=== PATIENT | female | born 2000 | race Caucasian/White ===

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

== ENCOUNTER → 2019-10-19 | Outpatient (CLI) | payer MEDICAID ==
[~2019-10-19] MED LIST changes: +HYDR-4226 PO; -HYDR-757 PO; +SULF1TAB35 PO; +VIGAMOX OP
--- NOTE | 2019-10-19 14:58 | Diagnostic Imaging Report ---
INDICATION: Size and dates. TECHNIQUE: OB sonography was performed in the routine fashion with transabdominal views. FINDINGS: The uterus measures 9.6 x 6.7 x 7.6 cm. There is no uterine mass. A single live intrauterine gestation is seen with a heart rate of 165 BPM. A normal appearing yolk sac is visualized. The fetus measures 8 weeks 2 days by crown-rump length. There is no evidence of subchorionic bleed. The right ovary measures 4.0 x 3.2 x 3.0 cm and contains a simple cyst measuring 2.7 x 2.8 cm. There is a normal appearance of the left ovary measuring 4.2 x 3.1 x 2.3 cm. There is no free fluid. There is color flow to both ovaries. IMPRESSION: Single live intrauterine fetus measuring 8 weeks 2 days by crown-rump length. There is no detectable abnormality at this time. Recommend followup later in for anatomical survey. There is a corpus luteal cyst of the right ovary. There is no free fluid. Dictated by: Dictated on workstation # [id number]
== END ==
LOC: RAD 12:42
PROVIDERS: ATTEND Family Medicine
DX: Z36.9 Encounter for antenatal screening, unspecified (principal); Z3A.08 8 weeks gestation of pregnancy; N83.11 Corpus luteum cyst of right ovary
CPT/HCPCS: 76801

== ENCOUNTER → 2020-01-06 | Outpatient (CLI) | payer MEDICAID ==
--- NOTE | 2020-01-06 16:00 | Diagnostic Imaging Report ---
INDICATION: survey. TECHNIQUE: Multiple real-time grayscale images were obtained over the gravid uterus. COMPARISON: 10/19/2019. FINDINGS: The previous OB ultrasound exam performed on 10/19/2019 noted a single live intrauterine fetus of approximately 8 weeks 2 days gestation. On this exam, the fetus is again visualized. heart motion was noted and a rate of 147 BPM was recorded. The fetus is in breech presentation. There were no abnormalities identified. The placenta is anterior and there is no previa. The amniotic fluid volume is within normal limits. The growth parameters are fairly uniform and have progressed as expected since the prior study. The cervix was identified and measures 4 cm in length. Biometrical measurements are as follows: Biparietal 4.65 cm, age 20 weeks 1 days. Head circumference 17.74 cm, age 20 weeks 2 days. Abdominal circumference 14.45 cm, age 19 weeks 6 days. Femur length 3.25 cm, age 20 weeks 1 days. Sonographic estimate age: 20 weeks 1 days. Sonographic estimated date of delivery: 05/24/20. Estimated Weight: 324 gm (+/- 47 gm). LMP percentile: 77%. heart rate: 147 beats per minute. number: 1 of 1. IMPRESSION: 1. There is a single live fetus of approximately 20 weeks 1 day gestation +/-1 week. The EDC remains May 24, 2020. 2. There were no abnormalities identified. 3. The growth parameters have progressed as expected since the prior study. Dictated by: Dictated on workstation # [id number]
== END ==
LOC: RAD 13:34
PROVIDERS: ATTEND Family Medicine
DX: Z34.92 Encounter for supervision of normal pregnancy, unspecified, second trimester (principal); Z3A.20 20 weeks gestation of pregnancy
CPT/HCPCS: 76805

== ENCOUNTER → 2020-02-28 | Outpatient (CLI) | payer MEDICAID ==
--- NOTE | 2020-02-28 11:50 | NUR ---
OLIVIA ANDRADE presented to unit via ambulation from registration with c/o RHOGAM INJECTION. Rhogam given, see intervention. Pt tolerates well. Pt ambulates off unit to prive vehicle. No s/s of distress.
== END ==
LOC: WSo 10:48
PROVIDERS: ATTEND Family Medicine
DX: Z29.13 Encounter for prophylactic Rho(D) immune globulin (principal)
CPT/HCPCS: 96372

== ENCOUNTER 2020-05-01 14:09 | Outpatient (RCR) | payer MEDICAID ==
[~2020-05-01] VITALS: Ht 152.5 cm; Wt 76.7 kg
--- NOTE | 2020-05-01 14:20 | NUR ---
OLIVIA ANDRADE presented to unit via AMBULATION from ED, , with c/o NST. OLIVIA ANDRADE weighed, gowned, voided, and to bed. EFHM and TOCO applied, VS taken. OLIVIA ANDRADE oriented to bed controls, call light, TV, heat, and A/C controls.
[2020-05-01 14:22] VITALS: BP_SYST 133; BP_SYST 151; BP_DIAS 66; BP_DIAS 83
[2020-05-01 14:40] VITALS: BP 124/61
[2020-05-01 14:50] VITALS: BP 121/58
--- NOTE | 2020-05-01 15:18 | NUR ---
DR ROBERTO CALLED, NEW ORDERS TO D/C PT HOME.
--- NOTE | 2020-05-01 15:19 | NUR ---
PT DISCHARGED TO HOME, LABOR PRECAUTIONS EXPLAINED, PT VERBALIZES UNDERSTANDING, WILL FOLLOW UP WITH DR IN CLINIC SCHEDULED.
[2020-05-01 15:20] VITALS: BP 121/58
[2020-05-19] MEDS ORDERED: PREN1TAB79 PO (18:53)
[2020-05-24] MEDS ORDERED: FERR-84 PO (09:29)
[2020-05-24] MEDS ORDERED: IBUP-844 PO (09:29)
[2020-05-24] MEDS ORDERED: OXC5T PO (09:29)
[2020-05-24] MEDS ORDERED: DCS100C PO (09:29)
[2020-05-24] MEDS ORDERED: ACET-93 PO (09:29)
== END 2020-07-30 | disposition home or self-care (01) ==
LOC: WSo 14:09 → LDRP 14:10
PROVIDERS: ATTEND Family Medicine
DX: O24.419 Gestational diabetes mellitus in pregnancy, unspecified control (principal)
CPT/HCPCS: 59025

== ENCOUNTER 2020-05-08 14:51 | Outpatient (RCR) | payer MEDICAID ==
[~2020-05-08] VITALS: Ht 152.4 cm; Wt 78.7 kg
--- NOTE | 2020-05-08 14:58 | NUR ---
OLIVIA ANDRADE presented to unit from Home, with c/o NST/GESTATIONAL DIABETES. OLIVIA ANDRADE weighed. EFHM and TOCO applied, VS taken. OLIVIA ANDRADE oriented to bed controls, call light, TV, heat, and A/C controls.
[2020-05-08 15:27] VITALS: BP 148/87
[2020-05-08 15:37] VITALS: BP 148/89
[2020-05-08 15:40] VITALS: BP 140/89
--- NOTE | 2020-05-08 15:43 | NUR ---
Dr. Beatty notified of reactive NST.
--- NOTE | 2020-05-08 15:45 | NUR ---
Patient ambulated from the unit at this time. No signs or symptoms of distress noted.
--- NOTE | 2020-05-15 14:34 | NUR ---
OLIVIA ANDRADE presented to unit via from home, with c/o GESTATIONAL DIABETES/NST. OLIVIA ANDRADE weighed, gowned, voided, and to bed. EFHM and TOCO applied, VS taken. OLIVIA ANDRADE oriented to bed controls, call light, TV, heat, and A/C controls.
[2020-05-15 14:35] VITALS: BP 149/90
[2020-05-15 14:55] VITALS: BP 139/70
[2020-05-15 15:08] VITALS: BP 139/70
--- NOTE | 2020-05-15 15:09 | NUR ---
Dr. Beatty notified of reactive NST, orders rec'd to discharge home. Monitors removed, pt ambulates off unit with no s/s distress.
[2020-05-19] MEDS ORDERED: PREN1TAB79 PO (18:53)
[2020-05-24] MEDS ORDERED: OXC5T PO (09:29)
[2020-05-24] MEDS ORDERED: DCS100C PO (09:29)
[2020-05-24] MEDS ORDERED: IBUP-844 PO (09:29)
[2020-05-24] MEDS ORDERED: ACET-93 PO (09:29)
[2020-05-24] MEDS ORDERED: FERR-84 PO (09:29)
== END 2020-08-06 | disposition home or self-care (01) ==
LOC: LAB 14:51
PROVIDERS: ATTEND Family Medicine
DX: O24.410 Gestational diabetes mellitus in pregnancy, diet controlled (principal)

== ENCOUNTER 2020-05-19 18:15 | Outpatient (CLI) | payer MEDICAID ==
[~2020-05-19] VITALS: Ht 152.4 cm; Wt 80.7 kg
--- NOTE | 2020-05-19 18:20 | NUR ---
OLIVIA ANDRADE presented to unit from ED, with c/o LEAKING FLUID. OLIVIA ANDRADE weighed, gowned, voided, and to bed. EFHM and TOCO applied, VS taken. OLIVIA ANDRADE oriented to bed controls, call light, TV, heat, and A/C controls.
[2020-05-19 18:51] LABS: BILIRUBIN,URINE NEGATIVE (NEGATIVE); CLARITY,URINE CLEAR; COLOR,URINE YELLOW; GLUCOSE, URINE (UA) NEGATIVE (NEGATIVE); KETONES,URINE NEGATIVE (NEGATIVE); LEUKOCYTE ESTERASE ,URINE NEGATIVE (NEGATIVE); NITRITE,URINE NEGATIVE (NEGATIVE); PH,URINE 6.5 (5-9); PROTEIN,URINE NEGATIVE (NEGATIVE)
[2020-05-19] MEDS ORDERED: PREN1TAB79 PO (18:53)
[2020-05-19 18:57] LABS: BACTERIA,URINE LARGE /HPF
[2020-05-19 19:00] VITALS: BP 159/103
--- NOTE | 2020-05-19 19:19 | NUR ---
Discharge instructions discussed with patient. Pt denies any concerns. Signature sheet signed, placed on chart. Offered wheelchair, denied per pt. Pt ambulating off unit at time to private vehicle. No signs of distress noted.
--- NOTE | 2020-05-21 08:25 | Physician Query-Final Dx ---
Clinic Account Progress/Dx Physician Query: Please give diagnosis Please include # weeks gestation Date of Service May 19, 2020 at 18:15 MATTHEW KUNZ May 21, 2020 08:25
== END 2020-05-19 19:19 | disposition home or self-care (01) ==
LOC: LDRP 18:15 → WSo 18:15
PROVIDERS: ATTEND Family Medicine
DX: O41.93X0 Disorder of amniotic fluid and membranes, unspecified, third trimester, not applicable or unspecified (principal); Z3A.38 38 weeks gestation of pregnancy
CPT/HCPCS: 81000; 87088; G0463; 99213

== ENCOUNTER 2020-05-21 23:25 | Outpatient (CLI) | payer MEDICAID ==
[~2020-05-21] VITALS: Ht 152.4 cm; Wt 81.4 kg
[~2020-05-21 23:25] MED LIST changes: +PREN1TAB79 PO
--- NOTE | 2020-05-21 23:30 | NUR ---
OLIVIA ANDRADE presented to unit via ambulatory from ED, accompanied by self, with c/o BROWN DISCHARGE, CRAMPING. OLIVIA ANDRADE weighed, gowned, voided, and to bed. EFHM and TOCO applied, VS taken. OLIVIA ANDRADE oriented to bed controls, call light, TV, heat, and A/C controls.
[2020-05-21 23:48] LABS: BILIRUBIN,URINE NEGATIVE (NEGATIVE); CLARITY,URINE CLOUDY; COLOR,URINE YELLOW; GLUCOSE, URINE (UA) NEGATIVE (NEGATIVE); KETONES,URINE NEGATIVE (NEGATIVE); LEUKOCYTE ESTERASE ,URINE NEGATIVE (NEGATIVE); NITRITE,URINE NEGATIVE (NEGATIVE); PROTEIN,URINE 1+ (NEGATIVE)
[2020-05-22] VITALS: BP 144/92
[2020-05-22 00:02] LABS: BACTERIA,URINE TRACE /HPF; RBC,URINE 0-2 /HPF; WBC,URINE 0-2 /HPF
[2020-05-22 01:01] VITALS: BP 159/85
--- NOTE | 2020-05-22 01:10 | NUR ---
DISCHARGE PACKET GIVEN AND EXPLAINED, UNDERSTANDING VOICED. PT AWARE HER PREVIOUSLY SCHEDULED APPOINTMENT IS TOMORROW. NO SS DISTRESS NOTED, PT AMBULATORY OFF UNIT AT THIS TIME.
[2020-05-22 01:15] VITALS: BP 144/92
--- NOTE | 2020-05-22 09:33 | Physician Query-Final Dx ---
MATTHEW KUNZ 05/22/20 0933: Clinic Account Progress/Dx Physician Query: Please give diagnosis Please include # weeks gestation Date of Service May 21, 2020 at 23:25 KATYA ROBERTO MD 05/22/20 1753: Clinic Account Progress/Dx DIAGNOSIS: Diagnosis 1. IUP at 39 weeks, non-labor 2. Uterine irritability MATTHEW KUNZ May 22, 2020 09:33 KATYA ROBERTO MD May 22, 2020 17:53
== END 2020-05-22 01:10 | disposition home or self-care (01) ==
LOC: WSo 23:25 → LDRP 23:26 → WSo 05-22 01:10
PROVIDERS: ATTEND Family Medicine
DX: N89.8 Other specified noninflammatory disorders of vagina (principal)
CPT/HCPCS: 81000

== ENCOUNTER 2020-05-22 06:06 | Inpatient (IN) | payer MEDICAID ==
[~2020-05-22] VITALS: Ht 152 cm; Wt 80.9 kg
[2020-05-22] VITALS (63 sets, daily range): BP systolic 0–163; BP diastolic 0–99
--- NOTE | 2020-05-22 06:10 | NUR ---
OLIVIA ANDRADE presented to unit via AMBULATORY from ED, accompanied by SELF, with c/o CONTRACTIONS. OLIVIA ANDRADE weighed, gowned, voided, and to bed. EFHM and TOCO applied, VS taken. OLIVIA ANDRADE oriented to bed controls, call light, TV, heat, and A/C controls. Above and further assessments carried out per this rn.
--- NOTE | 2020-05-22 06:35 | NUR ---
ht wt not obtained as pt was last seen 05/21/20 at 2330 and discharged from clinic evaluation on 05/22/20 0110.
--- NOTE | 2020-05-22 06:50 | NUR ---
present on unit, notified of pt arrival, current sve, reports evaluating pt after another case is completed as he remains on unit.
--- NOTE | 2020-05-22 07:05 | NUR ---
at bedside, poc reviewed, understanding voiced by pt.
[2020-05-22] MEDS ORDERED: D5 LR IV SOLUTION 1,000 ML IV ONE (07:20)
--- NOTE | 2020-05-22 07:22 | History & Physical-OB ---
OB - Chief Complaint & HPI Date/Time Date of Admission: Date of Admission: Date seen by a Provider: May 22, 2020 Time Seen by a Provider: 07:10 Chief Complaint/History OB-Reason for Admission/Chief: Onset of Labor Hx : 1 Hx Para: 0 Expected Date of Delivery: May 29, 2020 Gestational Age in Weeks: 39 Gestational Age in Days: 0 Admission Nurse Assessment Rev: Yes History of Labs GBS negative Allergies and Home Medications Allergies Coded Allergies: No Known Drug Allergies (Unverified , 05/21/20) Home Medications Vit W-Ca,Fe,FA(<1 mg) 1 Each Tablet, 1 EACH PO DAILY, (Reported) Patient Home Medication List Home Medication List Reviewed: Yes OB - History Hx of Present Care: Yes Ultrasounds: Normal mid trimester US Obstetrical Complications: Gestational Diabetes Medical Complications: None Obstetrical History Hx : 1 Hx Para: 0 Delivery History Hx Blood Disorders: No Patient Past Medical History no chronic medical problems Social History/Family History Alcohol Use: Denies Use Recreational Drug Use: No 2nd Hand Smoke Exposure: No Immunizations Tetanus Booster (TDap): Less than 5yrs Date of Influenza Vaccine: Aug 27, 2014 OB - Admission Exam Physical Exam Vitals: Vital Signs 05/22/20 06:30 Temp 37.0 Pulse 99 Resp 18 Pulse Ox 98 O2 Delivery Room Air HEENT: Moist Membranes Heart: Rhythm Normal Lungs: Clear Abdomen: Gravid Extremities: Normal Cervical Dilatation: 1cm Effacement: Other (90%) Station: Ballotable Membranes: Intact Heart Rate: 140's Accelerations: Accelerations Present Decelerations: No Decelerations Short Term Variability: Present Intensity: Moderate Cardona Scoring Tool (Modified) Dilation (cm): 1-2cm (1) Effacement (%): 80-100% (3) Descent/Station: -3 (0) Cervix Consistency: Soft (2) Cervix Position: Anterior (2) Subtract 1 point for: Nulliparity (-1) Cardona Score: 7 OB - Assessment/Plan/Diagnosis Assessment Assessment: active labor Admission Dx 1. IUP at term 39 weeks in labor 2. Gestational diabetes-- well controlled Admission Status: Inpatient Order (span 2 midnights) Reason for Inpatient Admission: L&D Plan Other Plan -pitocin if needed -desires epidural KATYA ROBERTO MD May 22, 2020 07:22
[2020-05-22] MEDS ORDERED: OXYTOCIN PRE-MIX DRIP 500 ML IV SCH ×2 (08:01→19:21)
--- NOTE | 2020-05-22 08:07 | Labor Progress Note ---
Labor Progress Note Labor Progress Note Time Seen by Provider: 07:40 Subjective: Pt denies complaints. Feeling contractions pretty strongly, pain is a 6 out of 10. Objective: (Can we insert 24 hour vitals here?) Cervical exam: 2/90%/-3 Consistency: soft Position: mid Presentation: [] heart tones: 135 beats per minute, moderate variability, reactive Tocometer: 3-4 ctx/10 minutes Assessment/Plan: Judy Wilde is a (22 /Para 1 / 0,Gestational Age (wks)39 here for labor. - s/p AROM w// Meconium stained fluid at 07:40 CEFM/TOCO Start pitocin as needed Anesthesia: desires epidural Anticipate vaginal delivery. Plan to check in ~4 hours or as indicated d/w Dr. Jaci Lucas MD [facility] Resident, PGY-2 Vitals - Labs Vital Signs - I&O Vital Signs Date Time Temp Pulse Resp B/P (MAP) Pulse Ox O2 Delivery O2 Flow Rate FiO2 05/22/20 06:30 37.0 99 18 98 Room Air 05/22/20 06:16 37.0 0 0 0 Room Air PREETHI LUCAS MD May 22, 2020 08:07
[2020-05-22] MEDS ORDERED: D5 LR IV SOLUTION 1,000 ML IV SCH (08:13)
[2020-05-22] MEDS ORDERED: MINERAL OIL CONCENTRATE 99.9% 15 ML UDC TOP PRN (08:15)
[2020-05-22] MEDS: LACTATED RINGERS 1,000 ML IV SCH ×2 (08:34→17:31)
[2020-05-22] MEDS ORDERED: fentaNYL 2 mcg/ml BUPIVA 0.125 100 ML ONE (08:52)
[2020-05-22 09:05] LABS: BASOPHILS % (AUTO) 0 % (0-10); EOSINOPHILS # (AUTO) 0.1 10^3/uL (0.0-0.3); EOSINOPHILS % (AUTO) 1 % (0-10); HEMATOCRIT 37 % (35-52); HEMOGLOBIN 12.4 g/dL (11.5-16.0); LYMPHOCYTES # (AUTO) 2.5 10^3/uL (1.0-4.0); LYMPHOCYTES % (AUTO) 17 % (12-44); MEAN CORPUSCULAR HEMOGLOBIN 31 pg (25-34); MEAN CORPUSCULAR HGB CONC 33 g/dL (32-36); MEAN CORPUSCULAR VOLUME 94 fL (80-99); MEAN PLATELET VOLUME 11.5 fL (9.0-12.2); MONOCYTES # (AUTO) 1.1 10^3/uL (0.0-1.0); MONOCYTES % (AUTO) 8 % (0-12); NEUTROPHILS # (AUTO) 10.8 10^3/uL (1.8-7.8); NEUTROPHILS % (AUTO) 74 % (42-75); PLATELET COUNT 263 10^3/uL (130-400); WHITE BLOOD COUNT 14.6 10^3/uL (4.3-11.0)
[2020-05-22] MEDS ORDERED: fentaNYL INJECTION 100 MCG/2 ML AMP ONE ×3 (09:31→18:58)
[2020-05-22] MEDS ORDERED: BUPIVACAINE 0.25% 30 ML (SENSORCAINE) VIAL ONE ×3 (09:31→19:09)
[2020-05-22] MEDS ORDERED: LACTATED RINGERS 1,000 ML IV SCH ×3 (10:04→13:45)
[2020-05-22] MEDS ORDERED: METOCLOPRAMIDE INJ 10 MG/2 ML (REGLAN) IV PRN (10:15)
[2020-05-22] MEDS ORDERED: EPIDURAL (fentaNYL 2 MCG/ML BUPIVA 0.125%)100 ML BAG EPI PRN (10:15)
[2020-05-22] MEDS ORDERED: ONDANSETRON 4 MG/2 ML (SDV) Z0FRAN IV PRN (10:15)
[2020-05-22] MEDS ORDERED: diphenhydrAMINE 50 MG/ML INJ (BENADRYL) IV PRN (10:15)
[2020-05-22] MEDS ORDERED: NALOXONE 0.4 MG/ML 1 ML (NARCAN) VIAL IV PRN ×2 (10:15)
[2020-05-22] MEDS ORDERED: NALOXONE 0.4 MG/ML 1 ML (NARCAN) VIAL ONE (10:52)
--- NOTE | 2020-05-22 11:46 | Labor Progress Note ---
Labor Progress Note Labor Progress Note Time Seen by Provider: 11:42 Subjective: Pt denies complaints. Epidural now in place, much more comfortable. Not feeling contractions at all. Objective: (Can we insert 24 hour vitals here?) Cervical exam: 4+/95%/-1 Consistency: soft Position: mid-anterior Presentation: heart tones: 150s beats per minute, moderate variability, reactive. Possible early or variable decels prior to FSE insertion, but unclear, given poor TOCO reading and difficult external monitoring Tocometer: 5 ctx/10 minutes Assessment/Plan: Judy Wilde is a (20 /Para 1 / 0,Gestational Age (wks)39 here for labor, / preg c/b gDM and gHTN. CEFM/TOCO Continue pitocin/ Anesthesia: epidural Anticipate vaginal delivery. - FSE placed at 11:30 - Next check in 4 hours or as clinically indicated d/w Dr. Jaic Lucas MD [facility] Resident Physician, PGY-2 Vitals - Labs Vital Signs - I&O Vital Signs Date Time Temp Pulse Resp B/P (MAP) Pulse Ox O2 Delivery O2 Flow Rate FiO2 05/22/20 06:30 37.0 99 18 98 Room Air 05/22/20 06:16 37.0 0 0 0 Room Air Labs Laboratory Tests 05/22/20 07:55: White Blood Count 14.6H, Red Blood Count 3.99, Hemoglobin 12.4, Hematocrit 37, Mean Corpuscular Volume 94, Mean Corpuscular Hemoglobin 31, Mean Corpuscular Hemoglobin Concent 33, Red Cell Distribution Width 12.6, Platelet Count 263, Mean Platelet Volume 11.5, Immature Granulocyte % (Auto) 1, Neutrophils (%) (Auto) 74, Lymphocytes (%) (Auto) 17, Monocytes (%) (Auto) 8, Eosinophils (%) (Auto) 1, Basophils (%) (Auto) 0, Neutrophils # (Auto) 10.8H, Lymphocytes # (Auto) 2.5, Monocytes # (Auto) 1.1H, Eosinophils # (Auto) 0.1, Basophils # (Auto) 0.0, Immature Granulocyte # (Auto) 0.1 PREETHI LUCAS MD May 22, 2020 11:45
[2020-05-22] MEDS ORDERED: FAMOTIDINE 20 MG (PEPCID) TABLET ONE (12:30)
[2020-05-22] MEDS: FAMOTIDINE 20 MG (PEPCID) TABLET PO SCH (12:33)
[2020-05-22] MEDS ORDERED: CATHETER FLUSH 10 ML SYR IV SCH (14:00)
--- NOTE | 2020-05-22 14:05 | Labor Progress Note ---
Labor Progress Note Labor Progress Note Time Seen by Provider: 14:02 Subjective: Pt denies complaints. Objective: (Can we insert 24 hour vitals here?) Cervical exam: 5/100%/+1 Consistency: soft Position: anterior Presentation: heart tones: 140 beats per minute, moderate variability, reactive. Tocometer: 4 ctx/10 minutes Assessment/Plan: Judy Wilde is a (22 /Para 1 / 0,Gestational Age (wks)39 here for labor w/ c/b gHTN, and gDM (both well-controlled). - Around 12:10, had recurrent variables. Patient repositioned, given supplemental O2, 250cc bolus LR, and held Pitocin, resulting in improvement in her strip CEFM/TOCO Resume pitocin Anesthesia: epidural Anticipate vaginal delivery. Next check in 2-4 hours d/w Dr. Jaci Lucas MD [facility] Resident Physician, PGY-2 Vitals - Labs Vital Signs - I&O Vital Signs Date Time Temp Pulse Resp B/P (MAP) Pulse Ox O2 Delivery O2 Flow Rate FiO2 05/22/20 10:39 153/74 (100) 05/22/20 10:33 92 149/72 (97) 05/22/20 10:30 104 16 145/76 (99) 05/22/20 10:23 111 152/86 (108) 05/22/20 10:20 105 153/90 (111) 97 05/22/20 10:10 93 137/79 (98) 98 05/22/20 10:08 107 152/83 (106) 99 Room Air 05/22/20 10:00 102 16 153/88 (109) 98 Room Air 05/22/20 09:58 105 148/82 (104) 98 Room Air 05/22/20 09:55 102 144/78 (100) 98 Room Air 05/22/20 09:50 111 136/75 (95) 98 Room Air 05/22/20 09:47 99 144/81 (102) 97 Room Air 05/22/20 09:45 90 143/84 (103) 98 Room Air 05/22/20 09:44 79 142/80 (100) 99 Room Air 05/22/20 09:41 93 142/78 (99) 98 Room Air 05/22/20 09:34 97 145/79 (101) 98 Room Air 05/22/20 09:24 101 133/80 (97) 98 Room Air 05/22/20 09:12 95 16 150/90 (110) 97 Room Air 05/22/20 07:50 36.8 79 16 163/99 (120) Room Air 05/22/20 06:30 37.0 99 18 98 Room Air 05/22/20 06:16 37.0 0 0 0 Room Air Labs Laboratory Tests 05/22/20 07:55: White Blood Count 14.6H, Red Blood Count 3.99, Hemoglobin 12.4, Hematocrit 37, Mean Corpuscular Volume 94, Mean Corpuscular Hemoglobin 31, Mean Corpuscular Hemoglobin Concent 33, Red Cell Distribution Width 12.6, Platelet Count 263, Mean Platelet Volume 11.5, Immature Granulocyte % (Auto) 1, Neutrophils (%) (Auto) 74, Lymphocytes (%) (Auto) 17, Monocytes (%) (Auto) 8, Eosinophils (%) (Auto) 1, Basophils (%) (Auto) 0, Neutrophils # (Auto) 10.8H, Lymphocytes # (Auto) 2.5, Monocytes # (Auto) 1.1H, Eosinophils # (Auto) 0.1, Basophils # (Auto) 0.0, Immature Granulocyte # (Auto) 0.1 PREETHI LUCAS MD May 22, 2020 14:05
--- NOTE | 2020-05-22 16:37 | Labor Progress Note ---
Labor Progress Note Labor Progress Note Time Seen by Provider: 16:35 Subjective: Pt denies complaints. Feeling contractions a little bit, but comfortable. Objective: (Can we insert 24 hour vitals here?) Cervical exam: 6+/100%/+1 Consistency: soft Position: anterior Presentation: heart tones: 140-145 beats per minute, moderate variability, reactive Tocometer: 4-5 ctx/10 minutes Assessment/Plan: Judy Wilde is a (22 /Para 1 / 0,Gestational Age (wks)39 here for labor with preg c/b gHTN, gDM. CEFM/TOCO Continue pitocin/ Anesthesia: epidural Anticipate vaginal delivery. Next check in 2 hours d/w Dr. Jaci Lucas MD [facility] Resident Physician, PGY-2 Vitals - Labs Vital Signs - I&O Vital Signs Date Time Temp Pulse Resp B/P (MAP) Pulse Ox O2 Delivery O2 Flow Rate FiO2 05/22/20 15:45 94 130/72 (91) Room Air 0.00 05/22/20 15:30 36.9 94 141/73 (95) Room Air 0.00 05/22/20 15:15 96 16 129/73 (91) Room Air 0.00 05/22/20 15:00 37.0 100 141/81 (101) Room Air 0.00 05/22/20 14:45 112 141/82 (101) Room Air 0.00 05/22/20 14:30 97 16 138/73 (94) Room Air 0.00 05/22/20 14:15 98 145/85 (105) Room Air 0.00 05/22/20 14:00 97 138/78 (98) Room Air 0.00 05/22/20 13:45 98 133/79 (97) Room Air 0.00 05/22/20 13:30 95 141/83 (102) Room Air 0.00 05/22/20 13:15 96 136/83 (100) Room Air 0.00 05/22/20 13:00 96 141/77 (98) Room Air 0.00 05/22/20 12:45 96 142/79 (100) Room Air 0.00 05/22/20 12:30 100 16 121/81 (94) Room Air 0.00 05/22/20 12:06 Non Rebreather 10.00 05/22/20 12:00 93 129/68 (88) 05/22/20 11:45 37.0 96 139/63 (88) 05/22/20 11:30 99 132/61 (84) 05/22/20 11:15 97 16 139/70 (93) 05/22/20 11:00 90 16 141/74 (96) 05/22/20 10:39 153/74 (100) 05/22/20 10:33 92 149/72 (97) 05/22/20 10:30 104 16 145/76 (99) 05/22/20 10:23 111 152/86 (108) 05/22/20 10:20 105 153/90 (111) 97 05/22/20 10:10 93 137/79 (98) 98 05/22/20 10:08 107 152/83 (106) 99 Room Air 05/22/20 10:00 102 16 153/88 (109) 98 Room Air 05/22/20 09:58 105 148/82 (104) 98 Room Air 05/22/20 09:55 102 144/78 (100) 98 Room Air 05/22/20 09:50 111 136/75 (95) 98 Room Air 05/22/20 09:47 99 144/81 (102) 97 Room Air 05/22/20 09:45 90 143/84 (103) 98 Room Air 05/22/20 09:44 79 142/80 (100) 99 Room Air 05/22/20 09:41 93 142/78 (99) 98 Room Air 05/22/20 09:34 97 145/79 (101) 98 Room Air 05/22/20 09:24 101 133/80 (97) 98 Room Air 05/22/20 09:12 95 16 150/90 (110) 97 Room Air 05/22/20 07:50 36.8 79 16 163/99 (120) Room Air 05/22/20 06:30 37.0 99 18 98 Room Air 05/22/20 06:16 37.0 0 0 0 Room Air Labs Laboratory Tests 05/22/20 07:55: White Blood Count 14.6H, Red Blood Count 3.99, Hemoglobin 12.4, Hematocrit 37, Mean Corpuscular Volume 94, Mean Corpuscular Hemoglobin 31, Mean Corpuscular Hemoglobin Concent 33, Red Cell Distribution Width 12.6, Platelet Count 263, Mean Platelet Volume 11.5, Immature Granulocyte % (Auto) 1, Neutrophils (%) (Auto) 74, Lymphocytes (%) (Auto) 17, Monocytes (%) (Auto) 8, Eosinophils (%) (Auto) 1, Basophils (%) (Auto) 0, Neutrophils # (Auto) 10.8H, Lymphocytes # (Auto) 2.5, Monocytes # (Auto) 1.1H, Eosinophils # (Auto) 0.1, Basophils # (Auto) 0.0, Immature Granulocyte # (Auto) 0.1 PREETHI LUCSA MD May 22, 2020 16:37
[2020-05-22] MEDS ORDERED: TERBUTALINE INJ 1 MG/ML (BRETHINE) AMP ONE (17:38)
[2020-05-22] MEDS ORDERED: METOCLOPRAMIDE INJ 10 MG/2 ML (REGLAN) ONE (17:38)
[2020-05-22] MEDS ORDERED: CITRIC ACID/SOB CIT (BICITRA) 30 ML UDC ONE (17:39)
[2020-05-22] MEDS ORDERED: FAMOTIDINE 20MG/2ML IV (PEPCID) ONE (17:39)
[2020-05-22] MEDS ORDERED: TERBUTALINE INJ 1 MG/ML (BRETHINE) AMP SC NR (17:45)
[2020-05-22] MEDS ORDERED: AZITHROMYCIN INJECTION 500 MG in NS (IVPB) 250 ML IV NR (17:45)
[2020-05-22] MEDS ORDERED: ceFAZolin 2 GM IV Premixed 50 ML IV NR (17:45)
[2020-05-22] MEDS ORDERED: OXYTOCIN PRE-MIX DRIP 1,000 ML IV ONE (17:48)
--- NOTE | 2020-05-22 17:59 | Labor Progress Note ---
Labor Progress Note Labor Progress Note Date Seen by Provider: May 22, 2020 Time Seen by Provider: 17:45 Subjective: Pt is comfortable with epidural in place. Objective: Cervical exam: 5 Consistency: soft Position: -2 Presentation: vertex heart tones: 140 beats per minute, normal variability, reactive Tocometer: 2 ctx/10 minutes Assessment/Plan: Judy Wilde is a (20 /Para 1 / 0,Gestational Age (wks)39 in labor hold pitocin Anesthesia: epidural in place recommended due to intolerant to pitocin and labor. Late decels noted within last 30 minutes. To correct late decel pit stopped and SQ terbutaline 0.[address] George notified as well as surgery crew. Patient agrees with plan. Vitals - Labs Vital Signs - I&O Vital Signs Date Time Temp Pulse Resp B/P (MAP) Pulse Ox O2 Delivery O2 Flow Rate FiO2 05/22/20 15:45 94 130/72 (91) Room Air 0.00 05/22/20 15:30 36.9 94 141/73 (95) Room Air 0.00 05/22/20 15:15 96 16 129/73 (91) Room Air 0.00 05/22/20 15:00 37.0 100 141/81 (101) Room Air 0.00 05/22/20 14:45 112 141/82 (101) Room Air 0.00 05/22/20 14:30 97 16 138/73 (94) Room Air 0.00 05/22/20 14:15 98 145/85 (105) Room Air 0.00 05/22/20 14:00 97 138/78 (98) Room Air 0.00 05/22/20 13:45 98 133/79 (97) Room Air 0.00 05/22/20 13:30 95 141/83 (102) Room Air 0.00 05/22/20 13:15 96 136/83 (100) Room Air 0.00 05/22/20 13:00 96 141/77 (98) Room Air 0.00 05/22/20 12:45 96 142/79 (100) Room Air 0.00 05/22/20 12:30 100 16 121/81 (94) Room Air 0.00 05/22/20 12:06 Non Rebreather 10.05/22/20 12:00 93 129/68 (88) 05/22/20 11:45 37.0 96 139/63 (88) 05/22/20 11:30 99 132/61 (84) 05/22/20 11:15 97 16 139/70 (93) 05/22/20 11:00 90 16 141/74 (96) 05/22/20 10:39 153/74 (100) 05/22/20 10:33 92 149/72 (97) 05/22/20 10:30 104 16 145/76 (99) 05/22/20 10:23 111 152/86 (108) 05/22/20 10:20 105 153/90 (111) 97 05/22/20 10:10 93 137/79 (98) 98 05/22/20 10:08 107 152/83 (106) 99 Room Air 05/22/20 10:00 102 16 153/88 (109) 98 Room Air 05/22/20 09:58 105 148/82 (104) 98 Room Air 05/22/20 09:55 102 144/78 (100) 98 Room Air 05/22/20 09:50 111 136/75 (95) 98 Room Air 05/22/20 09:47 99 144/81 (102) 97 Room Air 05/22/20 09:45 90 143/84 (103) 98 Room Air 05/22/20 09:44 79 142/80 (100) 99 Room Air 05/22/20 09:41 93 142/78 (99) 98 Room Air 05/22/20 09:34 97 145/79 (101) 98 Room Air 05/22/20 09:24 101 133/80 (97) 98 Room Air 05/22/20 09:12 95 16 150/90 (110) 97 Room Air 05/22/20 07:50 36.8 79 16 163/99 (120) Room Air 05/22/20 06:30 37.0 99 18 98 Room Air 05/22/20 06:16 37.0 0 0 0 Room Air Labs Laboratory Tests 05/22/20 07:55: White Blood Count 14.6H, Red Blood Count 3.99, Hemoglobin 12.4, Hematocrit 37, Mean Corpuscular Volume 94, Mean Corpuscular Hemoglobin 31, Mean Corpuscular Hemoglobin Concent 33, Red Cell Distribution Width 12.6, Platelet Count 263, Mean Platelet Volume 11.5, Immature Granulocyte % (Auto) 1, Neutrophils (%) (Auto) 74, Lymphocytes (%) (Auto) 17, Monocytes (%) (Auto) 8, Eosinophils (%) (Auto) 1, Basophils (%) (Auto) 0, Neutrophils # (Auto) 10.8H, Lymphocytes # (Auto) 2.5, Monocytes # (Auto) 1.1H, Eosinophils # (Auto) 0.1, Basophils # (Auto) 0.0, Immature Granulocyte # (Auto) 0.1 KATYA ROBERTO MD May 22, 2020 17:59
[2020-05-22] MEDS ORDERED: METOCLOPRAMIDE INJ 10 MG/2 ML (REGLAN) IV ONE (18:00)
[2020-05-22] MEDS ORDERED: CITRIC ACID/SOB CIT (BICITRA) 30 ML UDC PO ONE (18:00)
[2020-05-22] MEDS ORDERED: FAMOTIDINE 20MG/2ML IV (PEPCID) IV ONE (18:00)
--- NOTE | 2020-05-22 18:27 | NUR ---
To OR for primary due to intolerance to labor. Jaci Beckett, Lance (family sociologist) here.
--- NOTE | 2020-05-22 18:27 | NUR ---
To OR for primary . Emory George (surgeon), Dr Beatty, Dr Lucas (family living educator) here.
[2020-05-22] MEDS ORDERED: BUPIVACAINE 0.5% 30 ML (SENSORCAINE) VIAL ONE (18:54)
[2020-05-22] MEDS ORDERED: KETOROLAC 30 MG/ML VIAL ONE (19:00)
--- NOTE | 2020-05-22 19:25 | Cesarean Section Operative ---
Procedure Procedure Note Pre-operative Diagnosis: Judy Wilde is a 20 /Para 1 / 0,Gestational Age 39 weeks with arrest of dilation, decelerations, meconium stained fluid Post-operative Diagnosis: same, persistent OP presentation, nuchal cord/bandelero Procedure: primary low transverse section Physician: KALANI BOLANOS Belt Worker: MD Santy Olmstead MD R2 Estimated blood loss: 300 mL Disposition: stable Findings: Viable female infant, Apgars 9/9, weight 7#9 ounces, intact placenta, 3vc, normal appearing uterus, tubes, and ovaries. Nuchal cord x 1, with bandelero, reduced at delivery, meconium stained fluid. OP presentation with caput, not in pelvic outlet Indications:Judy Wilde is a 20 /Para 1 / 0,Gestational Age 39 weeks presenting for primary section Procedure Details: The patient was seen in pre-op and the procedure was discussed with the patient in full, including the risks, benefits, and alternatives. All questions were a nswered. The patient was taken to the operating room and a time out was performed, verifying patient and procedure. After spinal anesthesia was placed by our anesthesia colleagues, the patient was placed in the dorsal supine with leftward tilt for uterine displacement.~ Her abdomen was then prepped and draped in the typical sterile fashion. A Pfannenstiel skin incision was made using a scalpel and carried down through the underlying fascia. The fascia was incised in the midline and tented up using Tashia clamps. On both the inferior and superior fascia side the rectus muscle was dissected off bluntly and sharply using Owens scissors. The peritoneum was identified and entered bluntly in the midline. This was then stretched laterally using manual strength. After entering the abdominal cavity and confirming lack of intraperitoneal adhesions, a large River retractor was placed and the lower uterine segment was visualized. ~ A scalpel was utilized to make a low transverse uterine incision. Amniotomy was performed with an Allis clamp with return of meconium stained fluid. The 's head was grasped and brought to the level of the incision. Fundal pressure was applied and infant was delivered without difficulty. Mouth and nares were suctioned with bulb suction. After the umbilical cord was clamped and cut, the infant was handed off to the pediatric staff. A sample of cord blood was then obtained. The placenta was delivered intact via uterine massage. The uterus was cleared of all clots and debris. The uterine incision was closed using 0 Vicryl in a running locked fashion. A second imbricated layer was placed using 0 Vicryl in a running fashion as well. The bilateral tubes and ovaries appeared normal. The abdominal gutters were cleared of all clots and debris. A final check of the uterine incision showed it to be hemostatic. The peritoneum was closed using 3-0 Vicryl in a running fashion. The fascia was closed with 0 Vicryl in a running fashion. The subcutaneous space was hemostatic, and irrigated. The subcutaneous space was closed with 3-0 Vicryl in several single interrupted stitches. The skin was then closed using 4-0 Biosyn in a running subcuticular fashion. The skin edges were reapproximated together and were hemostatic. A pressure dressing was applied. All sponge, lap and needle counts were correct at the end of the procedure per nursing. Vitals - Labs Vital Signs - I&O Vital Signs Date Time Temp Pulse Resp B/P (MAP) Pulse Ox O2 Delivery O2 Flow Rate FiO2 05/22/20 17:23 OxyMask 10.00 05/22/20 17:15 96 132/61 (84) Room Air 0.00 05/22/20 17:00 98 145/75 (98) Room Air 0.00 05/22/20 16:45 97 127/83 (98) Room Air 0.00 05/22/20 16:30 99 20 125/84 (98) 98 Room Air 0.00 05/22/20 16:15 95 20 144/81 (102) Room Air 0.00 05/22/20 16:00 96 146/78 (100) Room Air 0.00 05/22/20 15:45 94 130/72 (91) Room Air 0.00 05/22/20 15:30 36.9 94 141/73 (95) Room Air 0.00 05/22/20 15:15 96 16 129/73 (91) Room Air 0.00 05/22/20 15:00 37.0 100 141/81 (101) Room Air 0.00 05/22/20 14:45 112 141/82 (101) Room Air 0.00 05/22/20 14:30 97 16 138/73 (94) Room Air 0.00 05/22/20 14:15 98 145/85 (105) Room Air 0.00 05/22/20 14:00 97 138/78 (98) Room Air 0.00 05/22/20 13:45 98 133/79 (97) Room Air 0.00 05/22/20 13:30 95 141/83 (102) Room Air 0.00 05/22/20 13:15 96 136/83 (100) Room Air 0.00 05/22/20 13:00 96 141/77 (98) Room Air 0.00 05/22/20 12:45 96 142/79 (100) Room Air 0.00 05/22/20 12:30 100 16 121/81 (94) Room Air 0.00 05/22/20 12:06 Non Rebreather 10.00 05/22/20 12:00 93 129/68 (88) 05/22/20 11:45 37.0 96 139/63 (88) 05/22/20 11:30 99 132/61 (84) 05/22/20 11:15 97 16 139/70 (93) 05/22/20 11:00 90 16 141/74 (96) 05/22/20 10:39 153/74 (100) 05/22/20 10:33 92 149/72 (97) 05/22/20 10:30 104 16 145/76 (99) 05/22/20 10:23 111 152/86 (108) 05/22/20 10:20 105 153/90 (111) 97 05/22/20 10:10 93 137/79 (98) 98 05/22/20 10:08 107 152/83 (106) 99 Room Air 05/22/20 10:00 102 16 153/88 (109) 98 Room Air 05/22/20 09:58 105 148/82 (104) 98 Room Air 05/22/20 09:55 102 144/78 (100) 98 Room Air 05/22/20 09:50 111 136/75 (95) 98 Room Air 05/22/20 09:47 99 144/81 (102) 97 Room Air 05/22/20 09:45 90 143/84 (103) 98 Room Air 05/22/20 09:44 79 142/80 (100) 99 Room Air 05/22/20 09:41 93 142/78 (99) 98 Room Air 05/22/20 09:34 97 145/79 (101) 98 Room Air 05/22/20 09:24 101 133/80 (97) 98 Room Air 05/22/20 09:12 95 16 150/90 (110) 97 Room Air 05/22/20 07:50 36.8 79 16 163/99 (120) Room Air 05/22/20 06:30 37.0 99 18 98 Room Air 05/22/20 06:16 37.0 0 0 0 Room Air Labs Laboratory Tests 05/22/20 07:55: White Blood Count 14.6H, Red Blood Count 3.99, Hemoglobin 12.4, Hematocrit 37, Mean Corpuscular Volume 94, Mean Corpuscular Hemoglobin 31, Mean Corpuscular Hemoglobin Concent 33, Red Cell Distribution Width 12.6, Platelet Count 263, Mean Platelet Volume 11.5, Immature Granulocyte % (Auto) 1, Neutrophils (%) (Auto) 74, Lymphocytes (%) (Auto) 17, Monocytes (%) (Auto) 8, Eosinophils (%) (Auto) 1, Basophils (%) (Auto) 0, Neutrophils # (Auto) 10.8H, Lymphocytes # (Auto) 2.5, Monocytes # (Auto) 1.1H, Eosinophils # (Auto) 0.1, Basophils # (Aut o) 0.0, Immature Granulocyte # (Auto) 0.1 KALANI BOLANOS DO May 22, 2020 19:25
[2020-05-22] MEDS ORDERED: TETANUS,DIPTH,PERTUSS P/F (BOOSTRIX) 0.5 ML VIAL IM SCH (19:30)
[2020-05-22] MEDS ORDERED: MEASLES,MUMPS,RUBELLA 1 EA INJ SC SCH (19:30)
[2020-05-22] MEDS ORDERED: morphine INJ 4 MG/ML 1 ML (VIAL/SYRINGE) IVP PRN (19:30)
--- NOTE | 2020-05-22 19:30 | Short Stay Summary ---
Discharge Summary Hospital Course Was the Problem List Reviewed?: Yes Final Diagnosis: arrest of dilation, 39 week gestation, Rh -, HTN ( Hospital Course Date of Admission: May 22, 2020 at 07:30 Admission Diagnosis : Family Physician/Provider: Jonathan Beatty MD Date of Discharge: 05/22/20 Discharge Diagnosis: arrest of dilation 39 week Rh- gestational hypertension gestational diabetes, A1 mild acute blood loss anemia Hospital Course: Please see labor course and notes. the patient was admitted for induction of labor at [address] Beatty. CS done for arrest of dilation at 4-5 cm and f etal decelerations with augmentation. The presentation at delivery was OP and there was a bandelero and nuchal cord. Labs and Pending Lab Test: Laboratory Tests 05/22/20 07:55: White Blood Count 14.6H, Red Blood Count 3.99, Hemoglobin 12.4, Hematocrit 37, Mean Corpuscular Volume 94, Mean Corpuscular Hemoglobin 31, Mean Corpuscular Hemoglobin Concent 33, Red Cell Distribution Width 12.6, Platelet Count 263, Mean Platelet Volume 11.5, Immature Granulocyte % (Auto) 1, Neutrophils (%) (Auto) 74, Lymphocytes (%) (Auto) 17, Monocytes (%) (Auto) 8, Eosinophils (%) (Auto) 1, Basophils (%) (Auto) 0, Neutrophils # (Auto) 10.8H, Lymphocytes # (Auto) 2.5, Monocytes # (Auto) 1.1H, Eosinophils # (Auto) 0.1, Basophils # (Auto) 0.0, Immature Granulocyte # (Auto) 0.1 Home Meds Active Reported Vitamins ( Vit W-Ca,Fe,FA(<1 mg)) 1 Each Tablet 1 Each PO DAILY Assessment/Pt Instructions See DC instructions Discharge Instructions Discharge Diet: No Restrictions Activity as Tolerated: Yes Discharge Physical Examination General Appearance: Alert HEENT: Atraumatic Respiratory: Clear to Auscultation, Normal Air Movement Cardiovascular: Regular Rate, Normal S1, Normal S2 Abdominal: Normal Bowel Sounds, Other (Inc c/d/i) Extremities: Other (1+ edema) Skin: No Rashes Allergies: Coded Allergies: No Known Drug Allergies (Unverified , 05/21/20) Discharge Summary Date of Admission May 22, 2020 at 07:30 Date of Discharge KALANI BOLANOS DO May 22, 2020 19:30
--- NOTE | 2020-05-22 19:31 | Discharge Inst-Women's Service ---
Discharge Inst-Women's Serv Depart Medication/Instructions New, Converted or Re-Newed RX: RX on Chart Final Diagnosis arrest of dilation primary section acute blood loss anemia 39 week gestation Problems Reviewed?: Yes Consults/Follow Up Additional Follow Up: Yes (1 week with Tyrone; 6 weeks with Jaci) Activity Activity: Activity as Tolerated Driving Instructions: No Driving for 1 Week NO SMOKING: NO SMOKING Nothing Inside Vagina: No Douching, No [place], No Tampons Diet Discharge Diet: No Restrictions Symptoms to Report to : Swelling Increased, Bleeding Excessive, Pain Increased, Fever Over 101 Degrees F, Vaginal Bleeding Increase, Cramps in Feet or Legs, Vaginal Discharge Foul For Any Problems or Questions: Contact Your Physician Skin/Wound Care Infection Signs and Symptoms: Increased Redness, Foul Odor of Wound, Increased Drainage, Skin Itchy or Has a Rash, Increased Swelling, Temperature Above 101 F Operative Area Clean and Dry: Keep Incision Clean/Dry Stitches/Chiqui/Dermabond: Dermabond Bathing Instructions: KALANI Enrique DO May 22, 2020 19:31
[2020-05-22] MEDS: KETOROLAC 30 MG/ML VIAL IV SCH (19:48)
--- NOTE | 2020-05-22 20:47 | NUR ---
Nurse at pt bedside. Pt states that she is in no pain right now. Plan of care reviewed for the evening. Fundus massaged. Fundus is 1 under umbilicus and firm. Scant bleeding noted, and no clots expressed. Water refilled. IV's switched over to pump. Pt. has friends bringing her food, and has no other questions or requests at this time. SO at bedside.
[2020-05-22] MEDS: DOCUSATE SODIUM 100 MG (COLACE) CAP PO SCH (21:34)
[2020-05-22] MEDS: ACETAMINOPHEN 500 MG TAB (TYLENOL) PO SCH (21:51)
[2020-05-23] VITALS (8 sets, daily range): BP systolic 127–160; BP diastolic 65–102
[2020-05-23] MEDS: KETOROLAC 30 MG/ML VIAL IV SCH ×3 (01:44→13:45)
[2020-05-23] MEDS ORDERED: METOCLOPRAMIDE 5 MG (REGLAN) TAB ONE (02:03)
[2020-05-23] MEDS: METOCLOPRAMIDE 10 MG (REGLAN) TAB PO SCH ×4 (02:06→18:30)
[2020-05-23] MEDS ORDERED: MILK OF MAGNESIA 400 MG/5 ML 30 ML UDC PO PRN (05:00)
[2020-05-23 05:51] LABS: HEMATOCRIT 30 % (35-52); MEAN CORPUSCULAR HEMOGLOBIN 32 PG (25-34); MEAN CORPUSCULAR HGB CONC 34 G/DL (32-36); MEAN CORPUSCULAR VOLUME 94 FL (80-99)
[2020-05-23 05:52] LABS: BASOPHILS % (AUTO) 0 % (0-10); EOSINOPHILS # (AUTO) 0.1 10^3/uL (0.0-0.3); EOSINOPHILS % (AUTO) 0 % (0-10); LYMPHOCYTES # (AUTO) 2.7 X 10^3 (1.0-4.0); LYMPHOCYTES % (AUTO) 17 % (12-44); MEAN PLATELET VOLUME 11.1 FL (7.4-10.4); MONOCYTES % (AUTO) 7 % (0-12); NEUTROPHILS # (AUTO) 12.1 X 10^3 (1.8-7.8); NEUTROPHILS % (AUTO) 75 % (42-75); PLATELET COUNT 202 10^3/uL (130-400)
--- NOTE | 2020-05-23 06:10 | NUR ---
Dressing removed from incision at this time. Incision is dry and intact. Open to air. Pt. tolerated well.
[2020-05-23] MEDS: ACETAMINOPHEN 500 MG TAB (TYLENOL) PO SCH ×3 (06:17→20:52)
--- NOTE | 2020-05-23 07:56 | Anesthesia-Regional Post-Op ---
Regional Patient Condition Mental Status: Alert, Oriented x3 Circulation: Same as Pre-Op Headache: Absent Sensation: Full Recovery Motor Block: Absent Post Op Complications Complications None Follow Up Care/Instructions Patient Instructions None needed. Anesthesia/Patient Condition Patient is doing well, no complaints, stable vital signs, no apparent adverse anesthesia problems. No complications reported per nursing. SARAI GRADY CRNA May 23, 2020 07:56
--- NOTE | 2020-05-23 08:30 | NUR ---
Shift assessment done. VS checked. Patient is up to bathroom on own, voiding adequately. Denies passing blood clots or soaking pads. FF u/0 Denies BM yet. Requests to shower. Set up, bed linen changed. Meds given per orders. Patient complaining of pain, requests pain meds when available. Toradol given now, will give Oxyir in 1 hour when due. B/P noted to be elevated, will notify physician.
[2020-05-23] MEDS: DOCUSATE SODIUM 100 MG (COLACE) CAP PO SCH ×2 (08:40→20:51)
[2020-05-23] MEDS: FAMOTIDINE 20 MG (PEPCID) TABLET PO SCH ×2 (08:43→20:51)
[2020-05-23 09:58] LABS: ALANINE AMINOTRANSFERASE 13 U/L (0-55); ALBUMIN 2.4 GM/DL (3.2-4.5); ALKALINE PHOSPHATASE 90 U/L (40-136); BILIRUBIN,TOTAL 0.2 MG/DL (0.1-1.0); BUN/CREATININE RATIO 10; CALCIUM 7.8 MG/DL (8.5-10.1); CARBON DIOXIDE 19 MMOL/L (21-32); CHLORIDE 110 MMOL/L (98-107); CREATININE SERUM 0.61 MG/DL (0.60-1.30); GFR ESTIMATED > 60; POTASSIUM 4.3 MMOL/L (3.6-5.0); SODIUM 138 MMOL/L (135-145); TOTAL PROTEIN 4.8 GM/DL (6.4-8.2)
[2020-05-23 10:03] LABS: GLUCOSE 57 MG/DL (70-105)
--- NOTE | 2020-05-23 10:30 | NUR ---
Report received from Hadley Colon RN
--- NOTE | 2020-05-23 10:42 | NUR ---
Ambulating in halls
--- NOTE | 2020-05-23 10:49 | Postpartum Progress Note ---
Post Op Post-operative Day #1 s/p PLTCS, arrest of dilation, OP presentation Has had increasing blood pressures as she has been more active. She apparently had gestational hypertension. No UA done on admission. Also was GDM and no blood sugar done on admission. However, blood pressures were not treated during , nor labor and blood sugars done or treated during labor. She was diet controlled GDM. She does not have headache, blurred vision. fasting BG this am was 57 but she was asymptomatic. She is voiding well and UO has been excellent. Subjective: Patient is without complaints. Ambulating, voiding after delgado removed. Tolerating a regular diet without nausea or vomiting. Normal lochia. Pain is well controlled with oral pain medications. Passing flatus. breast feeding. Objective: 05/23/20 05/23/20 05/23/20 01:48 06:16 07:03 Temp 37.2 37.1 Pulse 90 83 Resp 20 20 B/P (MAP) 156/86 (109) 152/85 (107) Pulse Ox 98 O2 Delivery Room Air Room Air Room Air 05/23/20 00:00 Intake Total 3950 ml Output Total 2425 ml Balance 1525 ml Laboratory Tests Test 05/23/20 05:00 Range/Units White Blood Count 16.0 H 4.3-11.0 10^3/uL Red Blood Count 3.15 L 4.35-5.85 10^6/uL Hemoglobin 10.0 L 11.5-16.0 G/DL Hematocrit 30 L 35-52 % Mean Corpuscular Volume 94 80-99 FL Mean Corpuscular Hemoglobin 32 25-34 PG Mean Corpuscular Hemoglobin Concent 34 32-36 G/DL Red Cell Distribution Width 12.7 10.0-14.5 % Platelet Count 202 130-400 10^3/uL Mean Platelet Volume 11.1 H 7.4-10.4 FL Immature Granulocyte % (Auto) 1 % Neutrophils (%) (Auto) 75 42-75 % Lymphocytes (%) (Auto) 17 12-44 % Monocytes (%) (Auto) 7 0-12 % Eosinophils (%) (Auto) 0 0-10 % Basophils (%) (Auto) 0 0-10 % Neutrophils # (Auto) 12.1 H 1.8-7.8 X 10^3 Lymphocytes # (Auto) 2.7 1.0-4.0 X 10^3 Monocytes # (Auto) 1.0 0.0-1.0 X 10^3 Eosinophils # (Auto) 0.1 0.0-0.3 10^3/uL Basophils # (Auto) 0.0 0.0-0.1 10^3/uL Immature Granulocyte # (Auto) 0.1 0.0-0.1 10^3/uL Sodium Level 138 135-145 MMOL/L Potassium Level 4.3 3.6-5.0 MMOL/L Chloride Level 110 H 98-107 MMOL/L Carbon Dioxide Level 19 L 21-32 MMOL/L Anion Gap 9 5-14 MMOL/L Blood Urea Nitrogen 6 L 7-18 MG/DL Creatinine 0.61 0.60-1.30 MG/DL Estimat Glomerular Filtration Rate > 60 BUN/Creatinine Ratio 10 Glucose Level 57 *L 70-105 MG/DL Calcium Level 7.8 L 8.5-10.1 MG/DL Corrected Calcium 9.1 8.5-10.1 MG/DL Total Bilirubin 0.2 0.1-1.0 MG/DL Aspartate Amino Transf (AST/SGOT) 33 5-34 U/L Alanine Aminotransferase (ALT/SGPT) 13 0-55 U/L Alkaline Phosphatase 90 40-136 U/L Total Protein 4.8 L 6.4-8.2 GM/DL Albumin 2.4 L 3.2-4.5 GM/DL Physical Exam: General - Alert and oriented, no apparent distress Abdomen - Soft, appropriately tender to palpation, non-distended, fundus firm at umbilicus Incision - clean, dry and intact; no erythema or induration, no drainage Extremities - no edema, negative Olamide's bilaterally Assessment: 1 post-operative day # 1, status post PLTCS. Recovering well, hemodynamically stable 2. Gestational HTN. Labs do not indicated pre-e, but PC ratio is pending. 3. Acute blood loss anemia Plan: Routine post-operative care. Encourage breast feeding. Encourage ambulation. VTE prophylaxis: SCDs. Ferrous sulfate supplementation. Plan for discharge tomorrow. continue to monitor blood pressures today. Treat as necessary, but likely will expectantly manage for the next few weeks. PIH instructions give Vitals - Labs Vital Signs - I&O Vital Signs Date Time Temp Pulse Resp B/P (MAP) Pulse Ox O2 Delivery O2 Flow Rate FiO2 05/23/20 07:03 Room Air 05/23/20 06:16 37.1 83 20 152/85 (107) Room Air 05/23/20 01:48 37.2 90 20 156/86 (109) 98 Room Air 05/22/20 21:47 37.1 115 18 144/85 (104) 97 Room Air 05/22/20 20:20 36.4 20 134/87 (103) 97 Room Air 05/22/20 20:20 Room Air 05/22/20 20:20 36.4 20 134/87 (103) 97 Room Air 05/22/20 20:13 18 135/88 (104) 97 Room Air 05/22/20 20:07 Room Air 05/22/20 20:06 18 136/91 (106) 98 Room Air 05/22/20 20:00 Room Air 05/22/20 20:00 22 145/87 (106) 98 Room Air 05/22/20 19:56 22 148/79 (102) 96 Room Air 05/22/20 19:53 Room Air 05/22/20 19:50 18 148/98 (115) 97 Room Air 05/22/20 19:46 Room Air 05/22/20 19:40 20 130/66 (87) 97 Room Air 05/22/20 19:40 Room Air 05/22/20 19:30 20 119/99 (106) 98 Room Air 05/22/20 19:24 Room Air 05/22/20 19:24 36.6 20 130/62 (84) 98 Room Air 05/22/20 18:24 127 138/68 (91) 05/22/20 18:22 125 137/67 (90) 05/22/20 18:21 125 136/64 (88) 05/22/20 18:15 37.3 126 134/60 (84) Room Air 0.00 05/22/20 18:00 126 137/64 (88) Room Air 0.00 05/22/20 17:45 126 129/97 (108) Room Air 0.00 05/22/20 17:30 115 141/83 (102) Room Air 0.00 05/22/20 17:23 OxyMask 10.00 05/22/20 17:15 96 132/61 (84) Room Air 0.00 05/22/20 17:00 98 145/75 (98) Room Air 0.00 05/22/20 16:45 97 127/83 (98) Room Air 0.00 05/22/20 16:30 99 20 125/84 (98) 98 Room Air 0.00 05/22/20 16:15 95 20 144/81 (102) Room Air 0.00 05/22/20 16:00 96 146/78 (100) Room Air 0.00 05/22/20 15:45 94 130/72 (91) Room Air 0.00 05/22/20 15:30 36.9 94 141/73 (95) Room Air 0.00 05/22/20 15:15 96 16 129/73 (91) Room Air 0.00 05/22/20 15:00 37.0 100 141/81 (101) Room Air 0.00 05/22/20 14:45 112 141/82 (101) Room Air 0.00 05/22/20 14:30 97 16 138/73 (94) Room Air 0.00 05/22/20 14:15 98 145/85 (105) Room Air 0.00 05/22/20 14:00 97 138/78 (98) Room Air 0.00 05/22/20 13:45 98 133/79 (97) Room Air 0.00 05/22/20 13:30 95 141/83 (102) Room Air 0.00 05/22/20 13:15 96 136/83 (100) Room Air 0.00 05/22/20 13:00 96 141/77 (98) Room Air 0.00 05/22/20 12:45 96 142/79 (100) Room Air 0.00 05/22/20 12:30 100 16 121/81 (94) Room Air 0.00 05/22/20 12:06 Non Rebreather 10.00 05/22/20 12:00 93 129/68 (88) 05/22/20 11:45 37.0 96 139/63 (88) 05/22/20 11:30 99 132/61 (84) 05/22/20 11:15 97 16 139/70 (93) 05/22/20 11:00 90 16 141/74 (96) I & O 05/23/20 07:00 Intake Total 7850 ml Output Total 5325 ml Balance 2525 ml Labs Laboratory Tests 05/23/20 05:00: White Blood Count 16.0H, Red Blood Count 3.15L, Hemoglobin 10.0L, Hematocrit 30L , Mean Corpuscular Volume 94, Mean Corpuscular Hemoglobin 32, Mean Corpuscular Hemoglobin Concent 34, Red Cell Distribution Width 12.7, Platelet Count 202, Mean Platelet Volume 11.1H, Immature Granulocyte % (Auto) 1, Neutrophils (%) (Auto) 75, Lymphocytes (%) (Auto) 17, Monocytes (%) (Auto) 7, Eosinophils (%) (Auto) 0, Basophils (%) (Auto) 0, Neutrophils # (Auto) 12.1H, Lymphocytes # (Auto) 2.7, Monocytes # (Auto) 1.0, Eosinophils # (Auto) 0.1, Basophils # (Auto) 0.0, Immature Granulocyte # (Auto) 0.1, Sodium Level 138, Potassium Level 4.3, Chloride Level 110H, Carbon Dioxide Level 19L, Anion Gap 9, Blood Urea Nitrogen 6L, Creatinine 0.61, Estimat Glomerular Filtration Rate > 60, BUN/Creatinine Ratio 10, Glucose Level 57*L, Calcium Level 7.8L, Corrected Calcium 9.1, Total Bilirubin 0.2, Aspartate Amino Transf (AST/SGOT) 33, Alanine Aminotransferase (ALT/SGPT) 13, Alkaline Phosphatase 90, Total Protein 4.8L, Albumin 2.4L KALANI BOLANOS DO May 23, 2020 10:49
[2020-05-23] MEDS: CATHETER FLUSH 10 ML SYR IV SCH ×2 (11:40→13:45)
--- NOTE | 2020-05-23 12:57 | NUR ---
Dr George updated on recent bp, labs reviewed and waiting on clean catch from pt for PCR lab.
--- NOTE | 2020-05-23 13:45 | NUR ---
pt resting in bed sleeping.
[2020-05-23] MEDS ORDERED: IBUPROFEN 600 MG (MOTRIN) TAB PO ONE (13:51)
[2020-05-23] MEDS: IBUPROFEN 600 MG (MOTRIN) TAB PO SCH ×2 (13:52→20:52)
--- NOTE | 2020-05-23 13:56 | NUR ---
clean catch urine obtained
[2020-05-23 14:29] LABS: URINE CREATININE FOR RATIO 19 MG/DL (30-125); URINE PROTEIN FOR RATIO ONLY < 6 MG/DL (6-12)
--- NOTE | 2020-05-23 15:00 | NUR ---
REPORT RECEIVED FROM VIRGEN LIRIANO RN.
--- NOTE | 2020-05-23 15:43 | NUR ---
OXYIR 5 MG P.O. FOR C/O ABD PAIN.
--- NOTE | 2020-05-23 15:45 | NUR ---
VSS. CARING FOR INFANT IN ROOM. S.O. AT BEDSIDE.
--- NOTE | 2020-05-23 18:30 | NUR ---
EATING DINNER. S.O. ASLEEP AT BEDSIDE.
[2020-05-24 03:19] VITALS: BP 138/93
[2020-05-24] MEDS: IBUPROFEN 600 MG (MOTRIN) TAB PO SCH ×2 (03:19→08:43)
[2020-05-24] MEDS: METOCLOPRAMIDE 10 MG (REGLAN) TAB PO SCH (03:19)
[2020-05-24] MEDS: ACETAMINOPHEN 500 MG TAB (TYLENOL) PO SCH (06:26)
--- NOTE | 2020-05-24 07:31 | Postpartum Progress Note ---
Note Note Day # 2 Subjective: Patient is without complaints. Ambulating, voiding. Tolerating a regular diet without nausea or vomiting. Normal lochia. Pain is well controlled with oral pain medications. Breast feeding exclusively without difficulties. Objective: [] Physical Exam: General - Alert and oriented, no apparent distress Pulm - Nonlabored respiration Abdomen - Soft, appropriately tender to palpation, non-distended, fundus firm at umbilicus Skin - incision clean, dry, and intact without erythema, drainage, or bleeding Extremities - no edema Neuro - no focal deficits Assessment: Judy Wilde is a 20 y/o female G1 now P1 post- day # 2, s/p C/S w/ preg c/b gHTN and gDM Recovering well, hemodynamically stable - Acute blood loss anemia (Hgb 12.4 -> 10.0) - BP slightly elevated post- Plan: Routine care. Encourage breast feeding. Encourage ambulation. Ferrous sulfate adn Vitamin C supplementation. VTE ppx: SCDs Monitor BP Plan for discharge on post-op day #2-3, pending baby's discharge d/w Dr. Ariel Lucas MD [facility] Resident Physician, PGY-2 Vitals - Labs Vital Signs - I&O Vital Signs Date Time Temp Pulse Resp B/P (MAP) Pulse Ox O2 Delivery O2 Flow Rate FiO2 05/24/20 03:19 37.1 96 18 138/93 (108) 96 Room Air 05/23/20 20:52 36.5 99 18 160/92 (114) 96 Room Air 05/23/20 16:26 36.4 85 18 127/65 (85) 95 Room Air 05/23/20 15:45 36.5 81 18 134/73 (93) 96 Room Air 05/23/20 11:17 36.7 84 20 148/82 (104) 96 Room Air 05/23/20 09:15 159/85 (109) 149/102 (118) 05/23/20 08:30 37.0 94 18 152/99 (116) 98 Room Air I & O 05/24/20 07:00 Intake Total 3980 ml Output Total 6150 ml Balance -2170 ml Labs Laboratory Tests 05/23/20 13:00: Urine Protein < 6L, Urine Creatinine 19L, Urine Protein/Creatinine Ratio PREETHI LUCAS MD May 24, 2020 07:31
[2020-05-24] MEDS: FAMOTIDINE 20 MG (PEPCID) TABLET PO SCH (08:42)
[2020-05-24] MEDS: DOCUSATE SODIUM 100 MG (COLACE) CAP PO SCH (08:42)
[2020-05-24 08:48] VITALS: BP 147/85
[2020-05-24] MEDS ORDERED: ACET-93 PO (09:29)
[2020-05-24] MEDS ORDERED: DCS100C PO (09:29)
[2020-05-24] MEDS ORDERED: FERR-84 PO (09:29)
[2020-05-24] MEDS ORDERED: IBUP-844 PO (09:29)
[2020-05-24] MEDS ORDERED: OXC5T PO (09:29)
--- NOTE | 2020-05-24 09:34 | NUR ---
Dr George here to see pt and discuss discharge.
[2020-05-24 12:10] VITALS: BP 147/85
--- NOTE | 2020-05-24 12:10 | NUR ---
OLIVIA ANDRADE demonstrates understanding of discharge instructions and accurately returns instructions upon questioning. Copy of Post-Discharge Instructions and Medication Discharge Instructions given to patient. OLIVIA ANDRADE is able to manage continuing needs after discharge. Patients belongings returned to patient. Skin dry and intact; no breakdown noted. Patient discharged from [facility] on 05-24-2020 at 1210 . OLIVIA ANDRADE left floor via ambulation, accompanied by women services staff. No concerns voiced at this time.
== END 2020-05-24 12:10 | disposition home or self-care (01) | DRG 787 ==
LOC: WSo 06:06 → LDRP 06:06 → WSo 07:30 → LDRP 07:30
PROVIDERS: ADMIT Family Medicine; ATTEND Family Medicine
PROC: 10D00Z1 Extraction of Products of Conception, Low, Open Approach (ICD-10-PCS; principal; 2020-05-22 18:28)
DX: O24.420 Gestational diabetes mellitus in childbirth, diet controlled (principal); D62 Acute posthemorrhagic anemia; O13.4 Gestational [pregnancy-induced] hypertension without significant proteinuria, complicating childbirth; Z3A.39 39 weeks gestation of pregnancy; Z37.0 Single live birth; O77.0 Labor and delivery complicated by meconium in amniotic fluid; O64.0XX0 Obstructed labor due to incomplete rotation of fetal head, not applicable or unspecified; O62.1 Secondary uterine inertia; O76 Abnormality in fetal heart rate and rhythm complicating labor and delivery; O69.81X0 Labor and delivery complicated by cord around neck, without compression, not applicable or unspecified; O90.81 Anemia of the puerperium; Z23 Encounter for immunization
CPT/HCPCS: 36415; 80053; 82570; 83033; 84156; 85025; 86850; 86900; 86901; 90715; 94664; 99212